=== PATIENT | female | born 1965 | race Caucasian/White ===

== ENCOUNTER 2018-11-13 21:55 | Emergency (ER) | payer OTHER ==
[~2018-11-13] VITALS: Ht 172.7 cm; Wt 63.6 kg
[2018-11-13 21:59] VITALS: Ht 172.7 cm; Wt 63.6 kg
--- NOTE | 2018-11-14 00:32 | ERD ---
ER Documentation Chief Complaint Chief Complaint DYSURIA X'S 2 DAYS HPI 53-year-old female with no significant past medical history presents to the emergency department complaining of dysuria intermittently for the past 2 days. She was diagnosed with urinary tract infection by her primary care physician approximately 1 week ago and took unknown antibiotic twice a day for 5 days which resolved her symptoms for 1 day but then they returned. She denies any back pain, abdominal pain, fevers, chills, or other symptoms at this time. ROS All systems reviewed and are negative except as per history of present illness. Medications Home Meds Active Scripts Phenazopyridine Hcl* (Pyridium*) 100 Mg Tab, 100 MG PO TID PRN for URINARY PAIN, #8 TAB Prov:DENIA WANG PA-C 11/14/18 Cephalexin* (Keflex*) 500 Mg Capsule, 500 MG PO TID for 7 Days, CAP Prov:DENIA WANG PA-C 11/14/18 Reported Medications [none] Unknown Strength No Conflict Check 07/02/15 Allergies Allergies: Coded Allergies: No Known Allergy (Unverified , 07/02/15) PMhx/Soc Medical and Surgical Hx: pt denies Medical Hx History of Surgery: No Anesthesia Reaction: No Hx Neurological Disorder: No Hx Respiratory Disorders: No Hx Cardiac Disorders: No Hx Psychiatric Problems: No Hx Miscellaneous Medical Probl: No Hx Alcohol Use: No Hx Substance Use: No Hx Tobacco Use: No Smoking Status: Never smoker FmHx Family History: No diabetes Physical Exam Vitals Vital Signs Date Temp Pulse Resp B/P (MAP) Pulse Ox O2 O2 Flow FiO2 Time Delivery Rate 11/14/18 97.8 52 16 109/64 97 Room Air 01:52 (79) 11/13/18 97.7 52 16 105/57 98 21:59 (73) Physical Exam Const: No acute distress Head: Atraumatic Eyes: Normal Conjunctiva ENT: Normal External Ears, Nose and Mouth. Neck: Full range of motion. No meningismus. Resp: Clear to auscultation bilaterally Cardio: Regular rate and rhythm, no murmurs Abd: Soft, non tender, non distended. Normal bowel sounds. No rebound tenderness or guarding. No McBurney's point tenderness. Skin: No petechiae or rashes Back: No midline or flank tenderness. No CVA tenderness. Ext: No cyanosis, or edema Neur: Awake and alert Psych: Normal Mood and Affect Results 24 hrs Laboratory Tests Test 11/14/18 00:38 Bedside Urine pH (LAB) 5.5 Bedside Urine Protein (LAB) Trace Bedside Urine Glucose (UA) Negative Bedside Urine Ketones (LAB) Trace Bedside Urine Blood Negative Bedside Urine Nitrite (LAB) Negative Bedside Urine Leukocyte Esterase (L 1+ POC Beta HCG, Qualitative NEGATIVE Procedures/MDM 53-year-old female presenting with signs and symptoms most consistent with uncomplicated urinary tract infection. No evidence of pyelonephritis, sepsis, or other emergent conditions. Patient is stable and appropriate for outpatient management with a prescription for Keflex and Pyridium. Patient advised to have 24 to 48-hour follow-up with her primary care physician and return to the dep artment immediately for any new or worsening or concerning symptoms. Should my medical decision making with the patient and she understands and agrees with the plan. Departure Diagnosis: Primary Impression: Dysuria Condition: Fair Patient Instructions: Dysuria Additional Instructions: Follow up with your PCP within the next 1-3 days for a repeat evaluation. If you require a referral to a specialist, your Primary Care Provider may be able to provide this for you. In most patient cases, a referral is not required. If you have further questions regarding this matter, please ask your Primary Care Provider. Return the the emergency department immediately if symptoms worsen or change. If you have any questions regarding medications, ask your pharmacist or us before you leave. If any adverse reactions, occur while taking your medications, discontinue the treatment and return to the emergency department immediately. If any new or worsening symptoms, uncontrolled fevers, or other unexplained symptoms occur, return to the emergency department immediately. Take your medications as directed, and complete the entire course of treatment. DENIA WANG PA-C Nov 14, 2018 00:32
[2018-11-14] MEDS ORDERED: CEPH-443 PO (01:04)
[2018-11-14] MEDS ORDERED: PHEN-537 PO (01:05)
[2018-11-14 01:52] VITALS: BP 109/64; PULSE 52; RESP 16
== END 2018-11-14 01:52 | disposition home or self-care (01) ==
LOC: FTE 21:55
DX: R30.0 Dysuria (principal)
CPT/HCPCS: 81003; 81025; Z7502; 99283